=== PATIENT | female | born 1985 | race Caucasian/White ===

== ENCOUNTER 2020-01-14 15:19 | Outpatient (CLI) | payer OTHER, SELFPAY ==
[2020-01-15 22:15] LABS: SARS-CoV-2 RNA PCR Negative
== END 2020-01-14 15:20 | disposition home or self-care (01) ==
LOC: CHSLAB 15:23
PROVIDERS: PCP Family Medicine; Visit Provider Family Medicine
DX: Z20.828 Contact with and (suspected) exposure to other viral communicable diseases (principal)
CPT/HCPCS: 87635; C9803; U0003

== ENCOUNTER 2020-01-16 10:50 | Outpatient (CLI) | payer OTHER, SELFPAY ==
--- NOTE | ~2020-01-16 | XR_ITS ---
EXAMINATION: XR chest 2V DATE: 01/16/2020 11:11 INDICATION: Chest congestion. Cough. Shortness of breath. TECHNIQUE: Frontal and lateral views of the chest were obtained. COMPARISON: Chest 2 views 04/10/2013 FINDINGS: The chest demonstrates clear lungs without pneumonia, pleural effusion, or pneumothorax. Th e heart size is normal. There are surgical clips in the abdomen. IMPRESSION: 1. No acute cardiopulmonary disease. Reviewed, dictated and finalized at location A.
== END 2020-01-16 10:51 | disposition home or self-care (01) ==
LOC: CHSIMG 10:53
PROVIDERS: PCP Family Medicine; Visit Provider Family Medicine
DX: R09.89 Other specified symptoms and signs involving the circulatory and respiratory systems (principal); R05 Cough; R06.02 Shortness of breath
CPT/HCPCS: 71046

== ENCOUNTER 2021-12-23 18:40 | Emergency (ER) | payer OTHER, MEDICAID, SELFPAY ==
--- NOTE | 2021-12-23 18:55 | ED.HA ---
HPI - Headache General Chief Complaint: Headache Stated Complaint: migraine Time Seen by Provider: 12/23/21 19:01 Source: patient and RN notes reviewed Mode of arrival: ambulatory Limitations: no limitations History of Present Illness MD elicited complaint: migraine Onset (ago): hour(s) (9) Onset description: gradually Location: right and parietal Severity: severe Quality & Timing: throbbing and progressively worsening Exacerbating factors: light and noise Relieving factors: nothing Context: occurred at rest Associated symptoms: nausea Treatments prior to arrival: none Related Data Home Medications Medication Instructions Recorded Confirmed Zoloft 20 mg PO DAILY 12/23/21 12/23/21 dextroamphetamine-amphetamine 20 20 mg PO BID 12/23/21 12/23/21 mg tablet Allergies Allergy/AdvReac Type Severity Reaction Status Date / Time diphenhydramine Allergy Intermediate rapid Verified 12/23/21 19:13 heart rate Review of Systems Review of Systems: All systems reviewed & are unremarkable except as noted in HPI and below PMFSH Past Medical History Medical History (Updated 12/23/21 @ 19:43 by Aaron Orozco MD) ADHD BMI 31.0-31.9,adult Surgical History Surgical History (Updated 12/23/21 @ 19:17 by Aaron Orozco MD) History of carpal tunnel release Hx of cholecystectomy Social History Social History Smoking status: Current every day smoker Exam Const: General: healthy appearing, no acute distress and alert Nutritional Appearance: well nourished and obese Orientation/consciousness: patient oriented x3 Limitations: no limitations HENMT: Head: normal to inspection Ears: external ears normal Face and sinus: normal facial exam Mouth: Yes Normal oral and palatal mucosa present Throat: posterior oropharynx normal Eyes: Conjunctivae: conjunctivae normal Pupils: Equal, round and reactive pupils present EOM: EOMs intact bilaterally Direct Ophthalmoscopy: photophobia Neck: Neck: normal visual inspection Resp: Effort & Inspection: normal respiratory effort Auscultation: clear to auscultation bilaterally Cardio: Rate: regular rate Rhythm: regular rhythm GI: GI Palp: Yes Soft to palpation and No Tenderness to palpation present (GI) Auscultation: normal bowel sounds Back/Spine/Pelvis: Cervical Spine: cervical ROM normal Thoracic/Lumbar Spine: thoraco-lumbar ROM normal Skin: General skin exam: normal color Rashes: no rashes Wounds: no wounds Neuro: General: patient oriented x3, moves all extremities, no focal motor deficits and CN's II-XI intact bilaterally Cranial nerves: Yes Nystagmus not present Speech: normal speech Gait exam (Neuro): Normal gait present Extrem: General: normal to inspection and no clubbing, cyanosis or edema Psych: Mental Status: mental status grossly normal Affect: normal affect Attitude: cooperative Course Vital Signs Vital signs: Vital Signs Temperature 36.4 C 12/23/21 19:09 Pulse Rate 89 12/23/21 19:09 Respiratory Rate 16 12/23/21 19:09 Blood Pressure 125/75 12/23/21 19:09 Pulse Oximetry 94 12/23/21 19:09 Oxygen Delivery Room Air 12/23/21 19:09 Temperature 36.4 C 12/23/21 19:09 Pulse Rate 66 12/23/21 20:04 Respiratory Rate 16 12/23/21 20:04 Blood Pressure 128/90 12/23/21 20:04 Pulse Oximetry 97 12/23/21 20:04 Oxygen Delivery Room Air 12/23/21 20:04 Discharge Plan Discharge Clinical Impression: Migraine Patient Disposition: Home, Self-Care Condition: Stable Instructions: Migraine Headache (ED) Additional Instructions: home and rest in a quiet dark room. Prescriptions: No Action dextroamphetamine-amphetamine 20 mg tablet 20 mg PO BID Zoloft 20 mg PO DAILY Follow-up/Referrals: UNKNOWN,DOCTOR [Primary Care Provider] - Time of Disposition: 19:43
[2021-12-23 19:09] VITALS: BP 125/75; PULSE 89; RESP 16; TEMP 36.4; O2SAT 94
[2021-12-23] MEDS: KETOROLAC 30 MG/ML VIAL (*BKC) IV PUSH (19:15)
[2021-12-23] MEDS: METOCLOPRAMIDE HCL INJ 10 MG/2 ML VIAL IV PUSH (19:16)
[2021-12-23 20:04] VITALS: BP 128/90; PULSE 66; RESP 16; O2SAT 97
== END 2021-12-23 20:05 | disposition home or self-care (01) ==
PROVIDERS: Emergency Provider Emergency Medicine
DX: G43.909 Migraine, unspecified, not intractable, without status migrainosus (principal)
CPT/HCPCS: 96374; 96375; 99284; J1885; J2765

== ENCOUNTER 2022-02-08 15:53 | Emergency (ER) | payer OTHER, SELFPAY ==
--- NOTE | ~2022-02-08 | CT_ITS ---
EXAMINATION: CT chest abdomen pelvis wo con DATE: 02/08/2022 19:39 INDICATION: pleuritic left chest pain and left flank pain,X1WK WORSE X2D . TECHNIQUE: Computed tomography (CT) of the chest, abdomen, and pelvis was performed with 100 mL Omnip aque-350 intravenous contrast. Automated exposure control and iterative reconstruction technique were employed. The dose-length product was 1531.06 mGy-cm. COMPARISON: None FINDINGS: Thoracic aorta: No significant dilation or calcification. Lung parenchyma and airways: Lungs and airways are clear. Thoracic inlet, axillae and chest wall: No thyroid or soft tissue mass. No axillary lymphadenopathy. Mediastinum: No mass or lymphadenopathy. Calcified mediastinal and hilar lymph nodes Heart and pericardium: Normal heart size. No pericardial effusion. Coronary artery calcifications: Moderate. Pleura: No effusion or mass. Thoracic bones: No acute osseous finding in the chest. ABDOMEN/PELVIS: Liver: Enlarged. Left lobe cyst or hemangioma. Biliary/Gallbladder: Gallbladder is absent. No bile duct dilation. Pancreas: No mass or duct dilation. Spleen: Normal. Adrenals:No mass. Kidneys: 5 mm left UPJ stone. Mild left pelviectasis and caliectasis. Mild left stranding. Punctate l eft lower pole and mid and lower pole right nonobstructing calculi. GI tract: No small or large bowel dilation. Normal appendix. Mesentery/Peritoneum: No ascites, mass, or free air. Retroperitoneum: No mass Pelvis: Partially distended urinary bladder with greater than expected wall thickening and mild infla mmatory change, remaining organs are within normal limits Soft Tissues: Soft tissues and body wall unremarkable. Abdominopelvic bones: No acute osseous finding in the abdomen/pelvis. IMPRESSION: 5 mm left UPJ stone causing mild obstructive uropathy. Possible cystitis. Hepatomegaly. Reviewed, dictated and finalized at location K. IMPRESSION: 5 mm left UPJ stone causing mild obstructive uropathy. Possible cystitis. Hepat omegaly.
[2022-02-08 15:55] VITALS: BP 158/113; PULSE 118; RESP 20; TEMP 36.2; O2SAT 98
[2022-02-08 16:58] LABS: Basophils Absolute Auto 0.03 K/mm3 (0.00-0.10); Basophils Percent Auto 0.2 % (0.0-1.0); Eosinophils Absolute Auto 0.05 K/mm3 (0.02-0.50); Eosinophils Percent Auto 0.3 % (1.0-6.0); Hematocrit 39.3 % (35.0-49.0); Hemoglobin 13.3 g/dL (12.0-15.0); Immature Granulocyte Absolute 0.06 K/mm3 (0.00-0.00); Immature Granulocyte Percent A 0.4 % (0.0-0.0); Lymphocytes Absolute Auto 2.31 K/mm3 (1.10-4.50); Lymphocytes Percent Auto 14.6 % (18.0-42.0); Mean Corpuscular HGB Conc 33.8 g/dL (32.0-36.0); Mean Corpuscular Volume 88.7 fL (78.0-102.0); Mean Platelet Volume 9.4 fl (9.2-11.8); Monocytes Absolute Auto 1.52 K/mm3 (0.10-0.90); Monocytes Percent Auto 9.6 % (2.0-11.0); Neutrophils Absolute Auto 11.9 K/mm3 (1.7-7.2); Neutrophils Percent Auto 74.9 % (50.0-70.0); Platelet Count Result 302 K/mm3 (150-420); Red Blood Count 4.43 M/mm3 (4.20-5.40); White Blood Count 15.8 K/mm3 (4.8-10.8)
[2022-02-08 16:59] LABS: Add Urine Microscopic? YES; Appearance Urine Clear (Clear); Bilirubin Urine Negative (Negative); Blood Urine 2+ (Negative); Color Urine Light Yellow (Yellow); Glucose Urine UA Negative (Negative); Ketones Urine 1+ (Negative); Leukocyte Esterase Ur 3+ LEU/UL (Negative); Nitrate Urine Negative (Negative); Protein Urine Negative (Negative); Specific Grav Ur <= 1.005 (1.010-1.020); Urobilinogen Urine 0.2 mg/dL (0.2-1.0)
[2022-02-08 17:10] LABS: WBC Urine 16-20 /hpf (0-3)
[2022-02-08 17:11] LABS: Bacteria Urine 2+ /hpf; Squamous Epithelial Cell Urine Few /hpf (Few); Transitional Epi Cells Urine Few /hpf
[2022-02-08 17:13] LABS: Alanine Aminotransferase 42 U/L (14-59); Alkaline Phosphatase 101 U/L (46-116); Anion Gap 9 mmol/L (8-16); Aspartate Amino Transferase 20 U/L (15-37); Bilirubin,Total 0.5 mg/dL (0.00-1.00); Blood Urea Nitrogen 7 mg/dL (7-18); Calcium 9.3 mg/dL (8.5-10.1); Carbon Dioxide 25 mmol/L (21-32); Chloride 97 mmol/L (98-108); Estimated CRCL calculation 104 ml/min; Estimated Glomerular Filt Rate > 60; Glucose 104 mg/dL (70-99); Lipase 105 U/L (73-393); Osmolality Calculated 270 mOsm/kg (285-295); Potassium 3.5 mmol/L (3.5-5.1); Sodium 131 mmol/L (136-145); Total Protein 8.2 g/dL (6.4-8.2)
[2022-02-08] MEDS: PANTOPRAZOLE SODIUM IV 40 MG VIAL IV PUSH (17:25)
[2022-02-08] MEDS: ONDANSETRON INJ 4 MG/2 ML VIAL IV PUSH (17:25)
[2022-02-08 17:26] LABS: Lactic Acid Reflex 0.8 mmol/L (0.4-2.0)
[2022-02-08] MEDS: SODIUM CHLORIDE 0.9% IV 1,000 ML 999 ML IV CONT (17:26)
--- NOTE | 2022-02-08 17:31 | PC.NURSE ---
PT IS AWAITING RESULTS AT THIS TIME. AT BEDSIDE. IVF INFUSING ORDERED WITHOUT DIFFICULTY. WARM BLANKETS PROVIDED. WILL CONTINUE TO MONITOR.
[2022-02-08 17:44] LABS: SPREG INTERNAL CONTROL Positive; Serum Qual hCG Negative
[2022-02-08 19:06] VITALS: BP 134/98; PULSE 98; RESP 18; O2SAT 99
--- NOTE | 2022-02-08 19:06 | PC.NURSE ---
PT IS LYING ON STRETCHER WITH LIGHTS OFF, AT BEDSIDE. IVF AND MEDICATIONS HAVE INFUSED. PT REPORTS FRONTAL HEADACHE, ERP NOTIFIED. NO ORDERS AT THIS TIME. REPORT TO ARIEL HOFF AT THIS TIME.
[2022-02-08] MEDS: ACETAMINOPHEN 325 MG TABLET 650 MG PO (19:23)
--- NOTE | 2022-02-08 20:37 | ED.ABDPAIN ---
HPI - Abdominal Pain General Chief Complaint: Abdominal Pain Stated Complaint: side and pain pain Time Seen by Provider: 02/08/22 15:57 Source: patient and RN notes reviewed Mode of arrival: ambulatory Limitations: no limitations History of Present Illness MD elicited complaint: flank pain (left flank pain) Pertinent past history: past UTI Onset (ago): hour(s) (6) Pain Consistency: constant Location: L flank Pain scale (0-10): 6 Quality: cramping and aching Radiation: none Migration to: no migration Exacerbating factors: nothing Relieving factors: nothing Associated symptoms: nausea and other (mild SOB) Related Data Home Medications Medication Instructions Recorded Confirmed dextroamphetamine-amphetamine 20 20 mg PO BID 12/23/21 02/08/22 mg tablet escitalopram oxalate 20 mg tablet 20 mg PO DAILY 02/08/22 02/08/22 gemfibrozil 600 mg tablet 600 mg PO BID 02/08/22 02/08/22 Allergies Allergy/AdvReac Type Severity Reaction Status Date / Time diphenhydramine Allergy Intermediate rapid Verified 02/08/22 16:27 heart rate Review of Systems Review of Systems: All systems reviewed & are unremarkable except as noted in HPI and below Constitutional: Constitutional: Reports no additional constitutional complaints Eyes: Eyes: Reports no additional eye complaints ENT: Reports system reviewed and no additional complaints, except as documented Cardiovascular: Cardiovascular: Reports no additional cardiovascular complaints Respiratory: Respiratory: Reports no additional respiratory complaints Gastrointestinal: Gastrointestinal: Reports bloating Comments: left flank pain Genitourinary: Genitourinary: Reports no additional female genitourinary complaints Musculoskeletal: Musculoskeletal: Reports no additional musculoskeletal complaints Integumentary/Breasts: Skin/Breast: Reports system reviewed and no additional complaints, except as docu Neurologic: Reports system reviewed and no additional complaints, except as documented Psychiatric: Psychiatric: Reports no additional psychiatric complaints Endocrine: Endocrine: Reports no additional endocrine complaints Hematologic/Lymphatic: Hematologic/Lymphatic: Reports no additional hematologic/lymphatic complaints Allergic/Immunologic: Allergic/Immunologic: Reports no additional allergic/immunologic complaints [facility] Past Medical History Medical History ADHD BMI 31.0-31.9,adult Calculus, ureteral UTI (urinary tract infection) Surgical History Surgical History History of carpal tunnel release Hx of cholecystectomy Social History Social History Smoking status: Current every day smoker Exam Const: General: no acute distress Nutritional Appearance: well nourished Orientation/consciousness: patient oriented x3 Limitations: no limitations HENMT: Head: normal to inspection Ears: external ears normal, TM's normal bilaterally and EAC's normal General nose exam: Normal external nose present and Normal nares present Face and sinus: normal facial exam and sinuses nontender Mouth: Yes Normal oral and palatal mucosa present and Yes moist mucous membranes Teeth and gingiva: dentition normal Throat: posterior oropharynx normal Eyes: Conjunctivae: conjunctivae normal Pupils: Equal, round and reactive pupils present EOM: EOMs intact bilaterally Neck: Neck: normal visual inspection, no lymphadenopathy and no meningeal signs Chest: Chest palpation & inspection: normal inspection of the chest Resp: Effort & Inspection: normal respiratory effort Auscultation: clear to auscultation bilaterally Cardio: Rate: regular rate Rhythm: regular rhythm GI: GI Palp: Yes Soft to palpation and Yes Tenderness to palpation present (GI) (minimal left flank tenderness.) Auscultation: normal bowel sounds :
[2022-02-08] MEDS: traMADol HCL (*CRX) 50 MG TABLET PO (21:05)
[2022-02-08 21:20] VITALS: BP 140/80; PULSE 88; RESP 16; TEMP 36.4; O2SAT 97
== END 2022-02-08 21:35 | disposition home or self-care (01) ==
PROVIDERS: Emergency Provider Emergency Medicine
DX: N20.1 Calculus of ureter (principal); N39.0 Urinary tract infection, site not specified
CPT/HCPCS: 36415; 71250; 74176; 80053; 81001; 83605; 83690; 84703; 85025; 87086; 87088; 96361; 96365; 96375; 99284; A9270; C9113; J0696; J2405; J7030

== ENCOUNTER 2022-12-05 07:20 | Outpatient (CLI) | payer BC, OTHER, SELFPAY ==
--- NOTE | ~2022-12-05 | US_ITS ---
Limited Abdominal Sonogram: Real-time sonographic imaging of the right upper quadrant was performed. Clinical History: Elevated liver enzymes Findings: The liver appears mildly echogenic, with no evidence of mass lesion or bile duct dilatatio n. It measures 19.6 cm in length. Main portal vein demonstrates normal direction of flow. The gallbla dder is absent, compatible prior cholecystectomy. The common bile duct measures 4 mm. The visualized pancreas, aorta, and IVC are unremarkable. Impression: Probable diffuse fatty infiltration of liver, with associated hepatomegaly. Status post cholecystectomy. Reviewed, dictated and finalized at location . Impression: Probable diffuse fatty infiltration of liver, with associated hepatomegaly. Status post cholecystectomy.
== END 2022-12-05 07:21 | disposition home or self-care (01) ==
DX: R74.8 Abnormal levels of other serum enzymes (principal); Z90.49 Acquired absence of other specified parts of digestive tract
CPT/HCPCS: 76705

== ENCOUNTER 2023-03-23 12:50 | Outpatient (CLI) | payer BC, OTHER, SELFPAY ==
--- NOTE | ~2023-03-23 | CT_ITS ---
EXAMINATION: CT abdomen pelvis wo con DATE: 03/23/2023 13:21 INDICATION: Left flank pain. TECHNIQUE: Computed tomography (CT) of the abdomen and pelvis was performed without intravenous contr ast. Automated exposure control and iterative reconstruction technique were employed. The dose-length product was 1147.60 mGy-cm. COMPARISON: CT 02/08/2022 FINDINGS: The visualized portions of the lung bases demonstrate minimal atelectasis. There is a chron ic 4 mm nodule in right lower lobe, likely benign. No pleural effusion. The heart size is normal. No pericardial effusion. There are coronary artery calcifications. The liver is normal. There are change s of cholecystectomy. The spleen, pancreas, adrenal glands, and left kidney are normal. There is a 3 mm stone in right kidney. There are no dilated loops of bowel. The appendix is normal. Aortic atheros clerosis is noted. There is mild mesenteric lymphadenopathy. The ovaries and uterus are unremarkable. There is no free intraperitoneal fluid. There is moderate thoracic spondylosis and mild lumbar spond ylosis. IMPRESSION: 1. Mild mesenteric lymphadenopathy, likely reactive. 2. Small nonobstructing right kidney stone. Reviewed, dictated and finalized at location E.
[2023-03-23 13:07] LABS: Basophils Absolute Auto 0.03 K/mm3 (0.00-0.10); Basophils Percent Auto 0.3 % (0.0-1.0); Eosinophils Absolute Auto 0.23 K/mm3 (0.02-0.50); Eosinophils Percent Auto 2.3 % (1.0-6.0); Hematocrit 39.5 % (35.0-49.0); Hemoglobin 13.3 g/dL (12.0-15.0); Immature Granulocyte Absolute 0.05 K/mm3 (0.00-0.00); Immature Granulocyte Percent A 0.5 % (0.0-0.0); Lymphocytes Absolute Auto 3.14 K/mm3 (1.10-4.50); Mean Corpuscular HGB Conc 33.7 g/dL (32.0-36.0); Mean Corpuscular Hemoglobin 29.5 pg (27.0-31.0); Mean Corpuscular Volume 87.6 fL (78.0-102.0); Mean Platelet Volume 8.7 fl (9.2-11.8); Monocytes Absolute Auto 0.79 K/mm3 (0.10-0.90); Monocytes Percent Auto 7.8 % (2.0-11.0); Neutrophils Absolute Auto 5.9 K/mm3 (1.7-7.2); Neutrophils Percent Auto 58.1 % (50.0-70.0); Platelet Count Result 336 K/mm3 (150-420); Red Blood Count 4.51 M/mm3 (4.20-5.40); Red Cell Distribution Width 13.7 % (11.6-14.4); White Blood Count 10.1 K/mm3 (4.8-10.8)
[2023-03-23 13:49] LABS: Anion Gap 13 mmol/L (8-16); Blood Urea Nitrogen 10 mg/dL (7-18); Calcium 9.3 mg/dL (8.5-10.1); Carbon Dioxide 26 mmol/L (21-32); Chloride 100 mmol/L (98-108); Estimated Glomerular Filt Rate > 60; Glucose 138 mg/dL (70-99); Osmolality Calculated 289 mOsm/kg (285-295); Potassium 3.4 mmol/L (3.5-5.1); Sodium 139 mmol/L (136-145)
== END 2023-03-23 12:51 | disposition home or self-care (01) ==
PROVIDERS: PCP Family Medicine; Visit Provider Nurse Practitioner
DX: R10.9 Unspecified abdominal pain (principal); R59.0 Localized enlarged lymph nodes; N20.0 Calculus of kidney
CPT/HCPCS: 36415; 74176; 80048; 85025

== ENCOUNTER 2023-07-11 12:24 | Outpatient (CLI) | payer BC, OTHER, SELFPAY ==
--- NOTE | ~2023-07-11 | CT_ITS ---
EXAMINATION: CT abdomen pelvis wo con DATE: 07/11/2023 12:47 INDICATION: Left flank pain. History of kidney stones. TECHNIQUE: Computed tomography (CT) of the abdomen and pelvis was performed without intravenous contr ast. Automated exposure control and iterative reconstruction technique were employed. Exam dose: 124 1.45 mGy-cm total exam DLP. COMPARISON: 03/23/2023 CT abdomen pelvis 02/08/2022 CT chest abdomen pelvis FINDINGS: Lung bases are clear. Normal heart size. No pericardial or pleural effusion. Status post cholecystectomy. No bile duct or pancreatic duct dilatation. Stable focal small area of diminished attenuation at the anterior margin of the lateral segment of th e left hepatic lobe, not changed since 02/08/2022, likely benign. The liver otherwise is unremarkable. Normal splenic size. No splenic or pancreatic mass lesion. No pancreatic calcification. Normal morphology of the adrenal glands. Approximately 3.7 mm nonobstructing right renal calculus. No other urinary tract calculus or hydroure teronephrosis is evident. The urinary bladder is unremarkable. There is no significant abnormality of the uterus or adnexal are as. Normal appendix. No bowel obstruction, bowel wall thickening, pneumatosis or intraperitoneal free air . There is mild atherosclerotic calcification but normal caliber of the abdominal aorta. No intraperito corin or retroperitoneal or pelvic mass lesion or adenopathy or ascites. Very small fat-containing umbilical hernia. Degenerative changes of the thoracic and to a lesser extent lumbar spine. No suspicious osteolytic or osteoblastic lesions are noted. IMPRESSION: Approximately 3.7 mm nonobstructing right renal calculus; no ureteral calculus or hydrou reteronephrosis Status post cholecystectomy Normal appendix Reviewed, dictated and finalized at Location A. Reviewed, dictated and finalized at location L. [facility] IMPRESSION: Approximately 3.7 mm nonobstructing right renal calculus; no urete ral calculus or hydroureteronephrosis Status post cholecystectomy Normal appendix
== END 2023-07-11 12:25 | disposition home or self-care (01) ==
LOC: CHSIMG 12:26
PROVIDERS: PCP Family Medicine; Visit Provider Nurse Practitioner
DX: R10.9 Unspecified abdominal pain (principal); N20.0 Calculus of kidney; Z90.49 Acquired absence of other specified parts of digestive tract
CPT/HCPCS: 74176

== ENCOUNTER 2023-09-05 13:07 | Outpatient (CLI) | payer BC, OTHER, SELFPAY ==
--- NOTE | ~2023-09-05 | US_ITS ---
US retroperitoneal comp 09/05/2023 13:44 Procedure: Realtime transabdominal ultrasound of the kidneys and bladder. Indication: Follow-up left ureteral stone Comparison: CT dated 07/11/2023 Findings: Renal echotexture is normal bilaterally without hydronephrosis, contour deforming mass or r enal calculus. The right kidney measures 11.1 cm and left kidney measures 11.2 cm. Bladder within no rmal limits. Impression: 1: Unremarkable renal ultrasound. No stones, masses or hydronephrosis. Reviewed, dictated and finalized at location A. Impression: 1: Unremarkable renal ultrasound. No stones, masses or hydronephrosis.
== END 2023-09-05 13:08 | disposition home or self-care (01) ==
PROVIDERS: PCP Family Medicine; Visit Provider Nurse Practitioner
DX: N20.1 Calculus of ureter (principal)
CPT/HCPCS: 76770

== ENCOUNTER 2023-11-07 02:50 | Emergency (ER) | payer BC, OTHER, SELFPAY ==
--- NOTE | ~2023-11-07 | CT_ITS ---
Non-contrast CT scan of the Abdomen and Pelvis Clinical indication: Flank pain Technique: 2.5 mm axial scans were obtained through the abdomen and pelvis without intravenous or or al contrast. Dose reduction technique was used on this scan by utilizing automated exposure control a nd iterative reconstruction technique. The dose-length product (DLP) was 1345.18 mGy-cm. COMPARISON: 07/11/2023 Findings: Images through the lung bases reveal no abnormalities. 2 mm nonobstructing right renal stone present. No left renal stone. No ureteral stone or hydronephros is on either side. The liver, spleen, pancreas, and adrenals appear normal. Cholecystectomy clips are present. There is no aortic aneurysm. There is no evidence of bowel obstruction. Appendix is dilated to 11 mm, with periappendiceal inflamm atory change, with small appendicolith of the midportion. No abscess or free air. There is minimal miller ziness in the central mesentery with shotty lymph nodes, suggestive of mesenteric panniculitis. Images through the pelvis were performed. There is no evidence of ascites or lymphadenopathy. Urinary bladder unremarkable. No pelvic mass seen. Impression: Acute appendicitis, as detailed above. No abscess or free air. Mild mesenteric panniculitis. 2 mm nonobstructing right renal stone. Reviewed, dictated and finalized at [facility]. Impression: Acute appendicitis, as detailed above. No abscess or free air. Mild mesenteric panniculitis. 2 mm nonobstructing right renal stone.
--- NOTE | 2023-11-07 02:55 | ED.GENADULT ---
HPI - General Adult General Chief complaint: Abdominal Pain Stated complaint: ABDOMINAL PAIN Time Seen by Provider: 11/07/23 02:55 as per history of present illness. History of Present Illness HPI narrative: history of present illness: Informant is patient. Patient reports right lower quadrant abdominal pain for the past couple days. She says the pain is similar to when she has had prior kidney stones. Has had some nausea with it. Thought she might have had some chills but did not indicate she had a definite temperature. Problem located abdomen with some radiation to the right flank. Has occurred before, has had several prior kidney stones. Does have a urologist that she has seen in the past for these. Moderate to severe intensity. Cause felt to likely be a kidney stone. Nothing making it better at home. Associated symptoms: No cough or fever. Past medical history: Kidney stones, asthma, preeclampsia past surgical history: Renal stents for kidney stone, wrist, gallbladder social history: Smokes/ encouraged to stop. Rare alcohol. Denies street drugs. Family history: Positive for heart disease/diabetes/ cancer/kidney stones . . Related Data Home Medications Medication Instructions Recorded Confirmed dextroamphetamine-amphetamine 20 20 mg PO BID 12/23/21 11/07/23 mg tablet escitalopram oxalate 20 mg tablet 20 mg PO DAILY 02/08/22 11/07/23 Allergies Allergy/AdvReac Type Severity Reaction Status Date / Time diphenhydramine Allergy Intermediate rapid Verified 02/08/22 16:27 heart rate Review of Systems Review of Systems: REVIEW OF SYSTEMS- constitutional: No fevers, ? chills, no sweats eye: No recent visual problems ENT: No ear pain, no nasal congestion, no sore throat respiratory: No shortness of breath, no cough cardiovascular: No chest pain, no palpitations, no syncope gastrointestinal: nausea, no vomiting, no diarrhea, right lower quadrant pain new/lymph: No bruising tendency, no swollen lymph glands endocrine: No excessive thirst, no excessive hunger muscle skeletal: No back pain, no neck pain, no joint pain, no muscle pain, no decreased range of motion integumentary: No rash, no pruritus, no abrasions neurologic: Alert and oriented x4 psychiatric: No anxiety, no depression [facility] Past Medical History Medical History ADHD BMI 31.0-31.9,adult Calculus, ureteral UTI (urinary tract infection) Surgical History Surgical History History of carpal tunnel release Hx of cholecystectomy Social History Social History Smoking status: Current every day smoker Exam Narrative: Physical exam: General- alert and oriented, well nourished, no acute distress eye: PERRL, EOMI, normal conjunctiva HENT: Normocephalic, clear tympanic membranes, normal hearing, normal oral mucosa, no scleral icterus, no sinus tenderness neck: Supple, nontender, no carotid bruits, no JVD, no lymphadenopathy lungs: Clear to auscultation, respirations are nonlabored heart: Normal rate, regular rhythm, no murmur, no gallop, no edema abdomen: Soft, Bowel sounds positive, seems to have slightly reproducible discomfort with deep palpation of the right quadrant however does not seem to be acutely peritoneal. No rash or sign of shingles seen. muscle skeletal: Normal range of motion and strength, no tenderness, no swelling skin: Skin is warm/ dry/ pink. no rashes, no lesions Neurologic: Awake, alert and oriented x4, cranial nerves I-XII intact psychiatric: Cooperative, appropriate mood and affect Medical Decision Making MDM Narrative Medical decision making narrative: . . . . . radiology report: Radiologist called at 4:40 a.m. to alert us of the diagnosis on the report. CT a
[2023-11-07 02:57] VITALS: BP 157/94; PULSE 99; RESP 16; TEMP 36.1; O2SAT 98
[2023-11-07] MEDS: KETOROLAC 30 MG/ML VIAL (*BKC) IV PUSH (03:15)
[2023-11-07] MEDS: ONDANSETRON INJ 4 MG/2 ML VIAL IV PUSH ×3 (03:15→06:02)
[2023-11-07 03:16] LABS: Basophils Absolute Auto 0.04 K/mm3 (0.00-0.10); Basophils Percent Auto 0.3 % (0.0-1.0); Eosinophils Absolute Auto 0.27 K/mm3 (0.02-0.50); Eosinophils Percent Auto 1.9 % (1.0-6.0); Hematocrit 39.2 % (35.0-49.0); Hemoglobin 13.3 g/dL (12.0-15.0); Immature Granulocyte Absolute 0.04 K/mm3 (0.00-0.00); Immature Granulocyte Percent A 0.3 % (0.0-0.0); Lymphocytes Absolute Auto 2.98 K/mm3 (1.10-4.50); Lymphocytes Percent Auto 21.2 % (18.0-42.0); Mean Corpuscular HGB Conc 33.9 g/dL (32-36); Mean Corpuscular Hemoglobin 29.5 pg (27.0-31.0); Mean Corpuscular Volume 86.9 fL (78.0-102.0); Monocytes Absolute Auto 1.21 K/mm3 (0.10-0.90); Monocytes Percent Auto 8.6 % (2.0-11.0); Neutrophils Percent Auto 67.7 % (50.0-70.0); Platelet Count Result 317 K/mm3 (150-420); Red Blood Count 4.51 M/mm3 (4.20-5.40); Red Cell Distribution Width 13.1 % (11.6-14.4)
[2023-11-07] MEDS: SODIUM CHLORIDE 0.9% IV 1,000 ML 999 ML IV CONT (03:17)
[2023-11-07 03:29] LABS: Appearance Urine Clear (Clear); Bilirubin Urine Negative (Negative); Blood Urine 3+ (Negative); Color Urine Light Yellow (Yellow); Glucose Urine UA Negative (Negative); Ketones Urine Negative (Negative); Leukocyte Esterase Ur Trace LEU/UL (Negative); Nitrate Urine Negative (Negative); Protein Urine Negative (Negative); Specific Grav Ur 1.025 (1.010-1.020); Urobilinogen Urine 0.2 mg/dL (0.2-1.0)
[2023-11-07 03:35] LABS: Alanine Aminotransferase 23 U/L (14-59); Albumin Level 3.6 g/dL (3.4-5.0); Alkaline Phosphatase 102 U/L (46-116); Amylase 53 U/L (25-115); Anion Gap 12 mmol/L (4-12); Aspartate Amino Transferase 14 U/L (15-37); Bilirubin,Total 0.3 mg/dL (0.00-1.00); Blood Urea Nitrogen 11 mg/dL (7-18); Calcium 8.5 mg/dL (8.5-10.1); Carbon Dioxide 26 mmol/L (21-32); Chloride 98 mmol/L (98-108); Estimated CRCL calculation 97 ml/min; Estimated Glomerular Filt Rate > 60; Glucose 177 mg/dL (70-99); Lipase 50 U/L (16-77); Osmolality Calculated 285 mOsm/kg (285-295); Potassium 3.5 mmol/L (3.5-5.1); Sodium 136 mmol/L (136-145); Total Protein 7.5 g/dL (6.4-8.2)
[2023-11-07 03:35] LABS: Add Urine Microscopic? YES; Bacteria Urine Trace /hpf; Mucus Urine Few /lpf; RBC Urine 0-2 /hpf (0-2); Squamous Epithelial Cell Urine Few /hpf (Few); WBC Urine 0-3 /hpf (0-3)
[2023-11-07 03:36] LABS: SPREG INTERNAL CONTROL Positive; Serum Qual hCG Negative
[2023-11-07] MEDS: SODIUM CHLORIDE 0.9% IV 1,000 ML 150 ML IV CONT (03:56)
[2023-11-07] MEDS: fentaNYL CITRATE INJ (*CRX) 100 MCG/2 ML VIAL 50 MCG IV PUSH (04:03)
[2023-11-07 04:04] VITALS: BP 145/87; PULSE 85; RESP 18; O2SAT 99
--- NOTE | 2023-11-07 04:40 | PC.NURSE ---
Pt resting and reports feeling some better. CT reports back and pt wants to transfer to [facility].
[2023-11-07] MEDS: PIPERACILLN/TAZ 3.375GM/NS50ML 3.375 GM/50 ML BAG IVPB (04:50)
[2023-11-07 04:54] VITALS: BP 152/95; PULSE 77; RESP 18; TEMP 36.3; O2SAT 97
--- NOTE | 2023-11-07 05:10 | PC.NURSE ---
Pt resting, paperwork signed and awaiting bed for transfer. POC updated w/ pt. VSS.
--- NOTE | 2023-11-07 05:44 | PC.NURSE ---
Call placed and report given to Anna Preston. [facility] paged for transfer.
[2023-11-07 06:07] VITALS: BP 136/82; PULSE 74; RESP 18; O2SAT 98
--- NOTE | 2023-11-07 06:07 | PC.NURSE ---
Pt loaded to EMS and report given to [facility] for transfer. VSS.
== END 2023-11-07 06:07 | disposition short-term general hospital (02) ==
PROVIDERS: Emergency Provider Emergency Medicine; PCP Family Medicine
DX: K35.80 Unspecified acute appendicitis (principal); F17.200 Nicotine dependence, unspecified, uncomplicated; Z79.899 Other long term (current) drug therapy
CPT/HCPCS: 36415; 74176; 80053; 81001; 82150; 83690; 84703; 85025; 96361; 96365; 96375; 96376; 99285; J1885; J2405; J2543; J3010; J7030; J7040

== ENCOUNTER 2023-11-07 08:47 | Observation (INO) | payer BC, SELFPAY ==
[2023-11-07] VITALS (11 sets, daily range): BP systolic 113–152; BP diastolic 54–86; PULSE 71–84; RESP 12–22; TEMP 35.5–37; O2SAT 91–99; BMI 46.4
--- NOTE | 2023-11-07 06:53 | ADMGEN ---
This patient, Edgar Warner, was admitted to [facility] Surg Room 312-01. Patient/family oriented to hospital policies and general routines including ID bracelet, bed and alarms, visiting hours, pain management, procedures, bathroom and other care routines, personal items, smoking policy, room service/diet, and visiting hours. Information on how to activate the Rapid Response Team has been discussed. Patient/Family are encouraged to report perceived risks to care and to ask questions if they do not understand what they are told or what they should do.
[2023-11-07] MEDS: ONDANSETRON INJ 4 MG/2 ML VIAL IV PUSH (09:02)
[2023-11-07] MEDS: SODIUM CHLORIDE 0.9% IV 1,000 ML 100 ML IV CONT (09:08)
[2023-11-07 09:28] LABS: Beta HCG Quantitative < 2.39 mIU/ML
[2023-11-07] MEDS: KETOROLAC 30 MG/ML VIAL (*BKC) IV PUSH ×2 (09:40→15:48)
--- NOTE | 2023-11-07 10:17 | PM.IMHP ---
H&P: HPI History of Present Illness Date/Time: 11/07/23 10:17 Chief Complaint: Acute appendicitis Narrative: The patient is a 38-year-old female presenting to the hospital from an outside emergency department complaining of right-sided abdominal pain with radiation to her flank over the last 4-5 days. Patient reports the pain has been progressively worsening and now more localized to the right lower quadrant. The patient reports associated nausea and some subjective chills at home. The patient also reports she has had a poor appetite. The patient reports that she has had multiple kidney stones in the past and this feels slightly different. Workup, including imaging, is significant for acute appendicitis. Review of Systems Review of Systems: All systems reviewed & are unremarkable except as noted in HPI and below PMFSH Past Medical History Medical History ADHD BMI 31.0-31.9,adult Calculus, ureteral UTI (urinary tract infection) Surgical History Surgical History History of carpal tunnel release Hx of cholecystectomy Family History Family History Father Congestive heart failure Myocardial infarct Cancer Mother Hypertension Social History Social History Smoking packs per day: 0.5 Smoking cigarettes per day: 10.0 Years smoked: 15 Smoking pack-years: 7.50 Smoking status: Current every day smoker Tobacco type: cigarettes Alcohol intake: current Drinks per week: 1 Substance use: current Substance use type: marijuana Other substance usage details: Adi Last use: 09/27/2023 Do You Feel Safe in your Home?: Yes Lack of Transportation: No Lack of Food: Never True Current Housing: I Have Housing Concerned About Future Housing: No Difficulty Paying Gas/Electric Bills: No Difficulty Paying for Meds: No Currently Unemployed: No Education: Associate Degree Difficulty w/ Childcare or Family Care: No Spiritual care concerns: No Meds Home Medications and Allergies Home Medications Medication Instructions Recorded Confirmed Type dextroamphetamine-amphetamine 20 20 mg PO BID 12/23/21 11/07/23 History mg tablet escitalopram oxalate 20 mg tablet 20 mg PO DAILY 02/08/22 11/07/23 History albuterol 90 mcg inhalation Q4H PRN 11/07/23 11/07/23 History Shortness Of Breath dextroamphetamine-amphetamine 10 10 mg PO 1600 11/07/23 11/07/23 History mg tablet Allergies Allergy/AdvReac Type Severity Reaction Status Date / Time diphenhydramine Allergy Intermediate rapid Verified 02/08/22 16:27 heart rate morphine Allergy Itching Verified 11/07/23 05:44 Vital Signs Vital Signs - 24 hr 11/07/23 06:52 Temperature 36.6 C Pulse Rate 73 Respiratory Rate 20 Blood Pressure 152/84 H Pulse Oximetry 97 Exam Const: General: cooperative, no acute distress, uncomfortable and obese HENMT: Head: normal to inspection, normocephalic and atraumatic Eyes: General: appearance normal, both eyes and all related structures Neck: Neck: normal visual inspection, full ROM and no lymphadenopathy Resp: Auscultation: clear to auscultation bilaterally Cardio: Rate: regular rate Rhythm: regular rhythm GI: Inspection: normal to inspection and non-distended GI Palp: Yes abdominal tenderness, Yes Soft to palpation, Yes Tenderness to palpation present (GI) and Yes Guarding due to palpation present (GI) Skin: General skin exam: normal color and no rashes or lesions noted Neuro: General: patient oriented x3 and CN's II-XI intact bilaterally Extrem: General: normal to inspection and full ROM Psych: Appearance: grossly normal H&P: Results Imaging CT scan - abdomen: My impression: Acute appendicitis with appendicolith Assessment and Pl
--- NOTE | 2023-11-07 10:21 | WPDHPUPDATE1 ---
History and Physical Update Update Date/Time: 11/07/23 10:21 History and Physical has been reviewed, including an updated exam of the patient. There are NO changes in the patient's condition. Risks, benefits, and alternatives have been discussed and questions answered. Patient agrees to proceed with procedure.
--- NOTE | 2023-11-07 11:43 | PC.NURSE ---
To OR per [DIANNA], IV [ ]. Report given to [DIANNA].
[2023-11-07] MEDS: LACTATED RINGERS 1,000 ML 30 ML IV CONT ×2 (12:00→14:53)
--- NOTE | 2023-11-07 12:09 | WPDANESEPPF ---
Anes - Initial Pre Proc Eval Procedure: Operation Date: 11/07/23 13:00 Proposed Procedures p Laparoscopic Appendectomy - Mirella Bell MD Date/Time: 11/07/23 12:09 Surgeon: Mirella Bell MD Pre Op Diagnosis: Acute appendicitis Patient Data Age: 38 Gender: F Height: 1.52 m Weight: 107.8 kg Last Vital Signs Temp 97.9 F 11/07/23 06:52 Pulse 73 11/07/23 06:52 Resp 20 11/07/23 06:52 BP 152/84 H 11/07/23 06:52 Pulse Ox 97 11/07/23 06:52 Allergies Allergy/AdvReac Type Severity Reaction Status Date / Time diphenhydramine Allergy Intermediate rapid Verified 02/08/22 16:27 heart rate morphine Allergy Itching Verified 11/07/23 05:44 Home Medications Medication Instructions Recorded Confirmed Type dextroamphetamine-amphetamine 20 20 mg PO BID 12/23/21 11/07/23 History mg tablet escitalopram oxalate 20 mg tablet 20 mg PO DAILY 02/08/22 11/07/23 History albuterol 90 mcg inhalation Q4H PRN 11/07/23 11/07/23 History Shortness Of Breath dextroamphetamine-amphetamine 10 10 mg PO 1600 11/07/23 11/07/23 History mg tablet Laboratory Tests 11/07/23 08:41 Beta HCG, Quant < 2.39 mIU/ML Patient hx anesthesia problems: none Family hx anesthesia problems: none Results Review: All pre-operative results and documents have been reviewed as part of the pre-operative evaluation. [facility] Past Medical History Medical History ADHD BMI 31.0-31.9,adult Calculus, ureteral UTI (urinary tract infection) Surgical History Surgical History History of carpal tunnel release Hx of cholecystectomy Family History Family History Father Congestive heart failure Myocardial infarct Cancer Mother Hypertension Social History Social History Smoking packs per day: 0.5 Smoking cigarettes per day: 10.0 Years smoked: 15 Smoking pack-years: 7.50 Smoking status: Current every day smoker Tobacco type: cigarettes Alcohol intake: current Drinks per week: 1 Substance use: current Substance use type: marijuana Other substance usage details: Gummies Last use: 09/27/2023 Do You Feel Safe in your Home?: Yes Lack of Transportation: No Lack of Food: Never True Current Housing: I Have Housing Concerned About Future Housing: No Difficulty Paying Gas/Electric Bills: No Difficulty Paying for Meds: No Currently Unemployed: No Education: Associate Degree Difficulty w/ Childcare or Family Care: No Spiritual care concerns: No Anes - Eval Final PreProcedure Day of Procedure 11/07/23 12:09 Patient weight: morbidly obese Heart: regular rate and rhythm Lungs: clear to auscultation Airway: Mallampati scale and special considerations (Upper dentures and missing many lower teeth. ) Neurological: alert and oriented Last oral intake: >/= 8 hours ASA classification: III Emergent: no Anesthetic plan: proceed Anesthesia type and monitoring: general ETT and standard monitoring Results Review: All pre-operative results and documents have been reviewed as part of the pre-operative evaluation. Smoker, 1/2 to 1ppd, 15 years. Informed Consent: The patient's anesthetic plan and its attendant risks and benefits were discussed with the patient/family/POA. Questions were solicited and answers provided to the satisfaction of the patient/family/POA.
[2023-11-07] MEDS: HYDROmorphone HCL INJ (*CRX) 1 MG/ML SYR 0.5 MG IV PUSH (12:19)
[2023-11-07] MEDS: ceFAZolin 2 GM/D5W 50 ML 2 GM/50 ML BAG IVPB (13:06)
[2023-11-07] MEDS: BUPIVACAINE/EPINEPHRINE 0.5% 50 ML VIAL 30 ML INFILTRATE (13:39)
[2023-11-07] MEDS: ALBUTEROL SULFATE NEB 2.5 MG/3 ML INH INHALATION (14:15)
[2023-11-07] MEDS: HYDROmorphone HCL INJ (*CRX) 1 MG/ML SYR IV PUSH (14:27)
--- NOTE | 2023-11-07 14:32 | W.PM.PROC2 ---
Procedure Note - Detailed Date of Procedure 11/07/23 Pre-op Diagnosis Acute appendicitis Post-op Diagnosis Same Procedure Performed laparoscopic appendectomy Surgeon Mirella Bell MD Anesthesia General Indications 38-year-old female presenting from outside hospital with right lower quadrant pain. Workup, including imaging, significant for acute appendicitis. Findings acute appendicitis no evidence of perforation Description of Procedure The patient was taken to the operating room and placed in the supine position. After adequate induction of general anesthesia, the patient was prepped and draped in the normal sterile fashion. A time-out was then done to verify the patient's identity, as well as the procedure being performed. I began by making a 5 mm incision in the infraumbilical region, through this a Veress needle was placed in the peritoneal cavity. CO2 gas was then insufflated and after adequate pneumoperitoneum was achieved the Veress needle was removed. Then placed a 5 mm Optiview trocar under direct visualization into the peritoneal cavity. I then insufflated through this trocar site and the endoscope was placed into the trocar. Under direct visualization I placed 2 further ports, a 5 mm suprapubic port as well as an additional 12 mm port in the left lower abdomen. At this point I identified the cecum and retracted the cecum both medially and superiorly allowing me to expose the appendix. The appendix was noted to be very dilated and inflamed. The appendix was noted to be very adherent to the right lateral sidewall as well as the cecum. I was able to bluntly dissect the appendix from these adhesions. I then was able to locate the base of the appendix with the cecum. I created a window with the [place] dissector between the appendix itself and the mesoappendix. I then transected the mesoappendix with a white vascular staple load. The Endo-DENA was then reloaded with a blue staple load and I transected the base of the appendix. Once the specimen was completely detached, an endo-pouch was placed into the 12 mm port site and the specimen was removed through the endo-pouch. The appendiceal specimen will be sent to pathology for further review. I then copiously irrigated the right lower quadrant. Hemostasis was noted at both staple lines no other pathology was seen in this area. I then moved the camera to the suprapubic port to check our its port of entry. No iatrogenic injury or other pathology was noted in the upper abdomen. I then closed the 12 mm port site with a Carl code and 0 Vicryl suture under direct visualization. At this point, the abdomen was desufflated and all ports were removed. All port sites were closed with 4 Monocryl subcuticular suture. Dermabond was placed on all wounds. The patient tolerated the procedure well and was extubated in the operating room postop. She will be sent to the recovery room in stable condition. Estimated Blood Loss 10 Drains No Packing No Pathology Yes Complications No immediate complications Condition Stable Disposition PACU [facility] Billing Surgery - Charge Forward: Surgery Billing
--- NOTE | 2023-11-07 15:41 | PC.NURSE ---
Returned from OR per [MARI AND MARY]. Report received from [MARY]. pt got back at [id number]
--- NOTE | 2023-11-08 09:50 | PM.DS ---
DS: Admitting Diagnosis Discharge Date 11/07/23 Admitting Diagnosis Acute appendicitis DS: Discharge Diagnosis Discharge Diagnosis (1) Acute appendicitis: Code(s): K35.80 - Unspecified acute appendicitis Status: Acute Assessment and Plan: status post laparoscopic appendectomy, doing well, home with routine postoperative care, scripts sent for [place] and [place], follow-up with me in 2 weeks DS: Summary Hospital Course Reason for hospitalization: acute appendicitis Hospital Course: The patient presented to an outside emergency department complaining of right lower quadrant abdominal pain. Workup, including CT, was significant for acute appendicitis. The patient was subsequently transferred and admitted to the Surgical Service, started on IV antibiotics, and made NPO. Upon evaluation, it was decided the patient would undergo urgent appendectomy. The patient was taken to the operating room and laparoscopic appendectomy was performed. Please see full operative report for details of that procedure. Postoperatively, the patient did well and was transferred back to the surgical floor. She was able to tolerate a bland diet and was ambulating without difficulty. Her pain was well controlled with p.o. analgesia. The patient will be now sent home with routine postoperative instructions, scripts for [place] and [place]. The patient will follow up with me in 2 weeks. Status at Discharge Functional status at discharge: independent ambulation Overall status at discharge: patient is progressing back to baseline Time Spent with Patient Time attestation: Total time spent providing and/or coordinating discharge services: Time spent: Less than 30 minutes Exam Const: General: cooperative, comfortable and no acute distress Resp: Auscultation: clear to auscultation bilaterally Cardio: Rate: regular rate Rhythm: regular rhythm GI: Inspection: normal to inspection and incision GI Palp: Yes abdominal tenderness and Yes Soft to palpation DS: Data Data Completed and Pending Pending studies at discharge: Pending at discharge 11/07/23 13:44 Surgical [PTH] Routine Discharge Plan Discharge Attending physician on discharge: Mirella Bell Consulting providers: Bao Crawford Discharging Clinician: Mirella Bell Anticipated Discharge Date/Time: 11/07/23 18:00 Patient Disposition: Home, Self-Care Activity: may shower and other - see discharge instructions Diet: as tolerated Wound Care Instructions: incision open to air Discharge Instructions: DISCHARGE INSTRUCTION SHEET FOR HERNIA, GALLBLADDER AND APPENDIX SURGERIES DR. BELL PATIENT TO TAKE HOME 1. May shower in 24 hours, no soaking in bath x 2weeks. 2. Call office for: Wound increasingly painful or bleeding Vomiting Fever of greater than 101 degrees 3. If no bowel movement for three days, take 1 oz. (30 ml) Milk of Magnesia or MiraLax 17g 1 to 2 times daily. 4. No heavy lifting > 10-15 pounds x 6 weeks for hernia repairs and 2 weeks for laparoscopic cholecystectomy or appendectomy. 5. No driving for 3 days or while taking narcotic pain medications. 6. Ice to surgical site for 48 hours (30 min on, then 30 min off). 7. Up walking 10-30 minutes three times per day. 8. Resume previous home medications. 9. Follow-up 10-14 days in office for wound check or as previously scheduled. ([phone]) 10. Oral pain medications prescription to be sent to pharmacy. Take Tylenol 500mg every 6 hours and Ibuprofen 600mg every 6 hours for the first 2 days, then as needed. 11. NUTRITION: Start out by drinking fluids and increase your diet as tolerated. If you experience nausea, try dry toast, crackers, and 7-UP. If nausea or vomiting persists, contact your surgeon?s office. 12. Gallbladders-Low Fat Diet for 2 weeks (send care note of low fat diet) 13. Inguinal
== END 2023-11-07 18:45 | disposition home or self-care (01) ==
PROVIDERS: Anesthesiology; Admitting Provider Surgery; PCP Family Medicine; Visit Provider Surgery
PROC: 0DTJ4ZZ Resection of Appendix, Percutaneous Endoscopic Approach (ICD-10-PCS; CPT 44970; principal; 2023-11-07 13:00)
DX: K35.80 Unspecified acute appendicitis (principal); F90.9 Attention-deficit hyperactivity disorder, unspecified type; F17.210 Nicotine dependence, cigarettes, uncomplicated; F12.90 Cannabis use, unspecified, uncomplicated; E66.01 Morbid (severe) obesity due to excess calories; Z68.42 Body mass index [BMI] 45.0-49.9, adult
CPT/HCPCS: 44970; 36415; 84702; 88304; 94640; A9270; G0378; G0379; J0690; J1100; J1170; J1885; J2250; J2371; J2405; J2704; J3010; J7030; J7120

== ENCOUNTER 2024-04-22 13:29 | Outpatient (CLI) | payer BC, SELFPAY ==
--- NOTE | ~2024-04-22 | US_ITS ---
EXAMINATION: US retroperitoneal comp DATE: 04/22/2024 13:54 INDICATION: Left ureteral stone TECHNIQUE: Multiple ultrasound grayscale images of the kidneys were obtained. COMPARISON: None. FINDINGS: The right kidney measures 11.0 x 5.2 x 5.1 cm. The left kidney measures 12.1 x 5.0 x 4.8 cm. The kidn eys demonstrate normal echogenicity. There is no hydronephrosis in either kidney. No stones identifi ed. The bladder is normal. IMPRESSION: 1. Normal kidneys without hydronephrosis. Reviewed, dictated and finalized at location [facility]
== END 2024-04-22 13:30 | disposition home or self-care (01) ==
LOC: CHSIMG 13:32
PROVIDERS: PCP Family Medicine; Visit Provider Nurse Practitioner
DX: N20.1 Calculus of ureter (principal)
CPT/HCPCS: 76770